=== PATIENT | male | born 1970 | race Caucasian/White ===

== ENCOUNTER 2020-12-30 02:10 | Observation (INO) ==
[2020-12-30] MEDS ORDERED: Isovue-370 500 ML BOTTLE IVP ONE (02:22)
[2020-12-30 02:37] LABS: Hematocrit 50.2 % (37.5-50.1); Hemoglobin 16.4 g/dL (12.9-16.9); Mean Corpuscular HGB Conc 32.7 g/dL (31.6-35.5); Mean Corpuscular Hemoglobin 29.7 pg (28.0-33.3); Mean Corpuscular Volume 90.8 fL (83.0-100.0); Mean Platelet Volume 8.6 fL (9.4-12.4); Platelet Count 306 K/mcL (140-400); Red Blood Count 5.53 M/mcL (4.19-5.50); Red Cell Distribution Width 13.2 % (11.5-14.5); White Blood Count 15.5 K/mcL (4.3-11.1)
[2020-12-30 02:43] LABS: INR 1.1; Prothrombin Time 12.8 Seconds (9.4-12.1)
[2020-12-30 02:45] LABS: Activated Partial Thrombo Time 29.2 Seconds (26.0-36.0)
[2020-12-30 03:03] LABS: BUN/Creatinine Ratio 14 (6-26); Blood Urea Nitrogen 17 mg/dL (6-20); Calcium 9.8 mg/dL (8.6-10.3); Carbon Dioxide 22 mEq/L (23-29); Chloride 101 mEq/L (98-107); Glucose 105 mg/dL (70-105); Osmolality,Calculated 284 (280-300); Potassium 3.5 mEq/L (3.5-5.1); Sodium 136 mEq/L (136-145); eGFR For African Americans > 60 (> 60); eGFR For Non-African Americans > 60 (> 60)
[2020-12-30 03:05] LABS: Troponin I < 0.03 ng/mL (< 0.04)
[2020-12-30] MEDS ORDERED: Perflutren Lipid Microsphere 1.3 ML in 0.9 % Sodium Chloride 8.7 ML IVP PRN (05:25)
[2020-12-30] MEDS ORDERED: Aspirin 81 MG TAB.CHEW PO ONE (05:27)
[2020-12-30] MEDS ORDERED: Acetaminophen 325 MG TABLET PO PRN (05:53)
[2020-12-30] MEDS ORDERED: Naloxone 0.4 MG/ML INJ IVP PRN (05:53)
[2020-12-30] MEDS ORDERED: Prochlorperazine 10 MG/2 ML VIAL IVP PRN (05:56)
[2020-12-30 07:34] LABS: Chol/HDL Ratio 2.1 (0-4.9); Magnesium 1.9 mg/dL (1.6-2.6)
[2020-12-30 07:46] LABS: Bilirubin,Urine Negative (Negative); Blood,Urine Negative (Negative); Clarity,Urine Clear (Clear); Color,Urine Colorless (Yellow); Glucose,Urine (UA) Normal (Normal); Ketones,Urine 40 mg/dL (Negative); Leukocyte Esterase,Urine Negative (Negative); Nitrite,Urine Negative (Negative); Protein,Urine Negative (Neg-Trace); Specific Gravity,Urine > 1.030 (1.010-1.025); Urobilinogen,Urine Normal (Normal)
[2020-12-30] MEDS ORDERED: Gadolinium Contrast Agent (WT Based) IV PRN (14:34)
[2020-12-30] MEDS ORDERED: GADOBUTROL 30 MMOL/30 ML VIAL IVP ONE (17:19)
[2020-12-30 19:12] VITALS: BP 153/89
[2020-12-31] MEDS ORDERED: BuPROPion XL (24 HR) 150 MG TABLET PO SCH (09:00)
[2020-12-31] MEDS ORDERED: Cholecalciferol (D-3) 1,000 UNIT (25MCG) TABLET PO SCH (09:00)
[2020-12-31] MEDS ORDERED: allopurinoL 300 MG TABLET PO SCH (09:00)
[2020-12-31] MEDS ORDERED: Aspirin Enteric Coated 81 MG Tablet PO SCH (09:00)
== END 2020-12-30 21:41 | disposition home or self-care (01) ==
LOC: CDU 02:10 → EMEROOARM 02:10 → CDU 04:23
PROVIDERS: ADMIT Student in an Organized Health Care Education/Training Program; ATTEND Student in an Organized Health Care Education/Training Program